=== PATIENT | male | born 1975 | race Caucasian/White ===

== ENCOUNTER 2019-01-30 11:19 | Emergency (ER) | payer BC ==
[2019-01-30] MEDS ORDERED: Lidocaine 1% (PF) 30 ML VIAL ONE (11:50)
--- NOTE | 2019-01-30 12:12 | RAD ---
XR Finger(s) Rt Min 2 View History: Injury Comparison: None. Findings: There is dorsal displacement of the thumb interphalangeal joint one half shaft width. Impression: Dorsal displaced thumb distal phalanx at the interphalangeal joint.
--- NOTE | 2019-01-30 12:37 | RAD ---
Radiograph right first digit 2 views: DATE: 01/30/2019 Time: 12:31 PM HISTORY: 43-year-old male status post traumatic subluxation of thumb COMPARISON: 01/30/2019 at 11:48 AM FINDINGS: The first IP joint is now located. No fracture is identified. IMPRESSION: Successful reduction of the dislocated first interphalangeal joint.
== END 2019-01-30 12:44 | disposition home or self-care (01) ==
LOC: ERS 11:19
DX: S63.124A Dislocation of interphalangeal joint of right thumb, initial encounter (principal); I10 Essential (primary) hypertension; E78.00 Pure hypercholesterolemia, unspecified; Z79.899 Other long term (current) drug therapy; W22.8XXA Striking against or struck by other objects, initial encounter
CPT/HCPCS: 26770; J2001